=== PATIENT | female | born 1990 | race Caucasian/White ===

== ENCOUNTER → 2016-11-27 | Outpatient (CLI) | payer MEDICAID ==
[~2016-11-27] VITALS: Ht 162.6 cm; Wt 82.7 kg
[2016-11-27 15:17] VITALS: BP 110/64
== END | disposition home or self-care (01) ==
LOC: LDOP 13:29
PROVIDERS: ATTEND Obstetrics & Gynecology
DX: O42.913 Preterm premature rupture of membranes, unspecified as to length of time between rupture and onset of labor, third trimester (principal); Z3A.36 36 weeks gestation of pregnancy
CPT/HCPCS: 59025; 89060; 99211; G0463; Q0114

== ENCOUNTER 2016-12-11 03:19 | Outpatient (CLI) | payer MEDICAID ==
[~2016-12-11] VITALS: Ht 162.6 cm; Wt 82.7 kg
[2016-12-11 04:24] VITALS: BP 126/76
== END 2016-12-11 04:20 | disposition home or self-care (01) ==
LOC: LDOP 03:19
PROVIDERS: ATTEND Obstetrics & Gynecology
DX: O36.8130 Decreased fetal movements, third trimester, not applicable or unspecified (principal); Z3A.37 37 weeks gestation of pregnancy
CPT/HCPCS: 59025; 99211; G0463

== ENCOUNTER 2016-12-22 09:05 | Inpatient (IN) | payer MEDICAID ==
[~2016-12-22] VITALS: Ht 162.6 cm; Wt 82.7 kg
[2016-12-22] MEDS ORDERED: OXYTOCIN 30U/ 0.9% NaCL 500ML 500 ML ONE (09:46)
[2016-12-22] MEDS ORDERED: PREN1TAB60 PO (10:10)
[2016-12-22] MEDS ORDERED: OXYTOCIN 30U/ 0.9% NaCL 500ML 500 ML IV ONE (10:12)
[2016-12-22] MEDS ORDERED: D5%-LACTATED RINGERS 1,000 ML IV SCH (10:12)
[2016-12-22] MEDS ORDERED: OXYTOCIN 30U/ 0.9% NaCL 500ML 500 ML IV PRN (10:12)
[2016-12-22] MEDS: LACTATED RINGERS 1,000 ML IV SCH ×2 (10:18→15:19)
[2016-12-22 10:30] VITALS: BP 117/70
[2016-12-22] MEDS ORDERED: PLEASE ENTER HEIGHT AND WEIGHT MC SCH (10:30)
[2016-12-22] MEDS ORDERED: ONDANSETRON 2MG/ML, 2ML IVPush PRN (10:30)
[2016-12-22] MEDS ORDERED: FENTANYL PF 100 MCG/2ML IV PRN (10:30)
[2016-12-22] MEDS ORDERED: FENTANYL PF 100 MCG/2ML IVPush PRN (10:30)
[2016-12-22] MEDS ORDERED: LACTATED RINGERS 1,000 ML IV SCH (15:34)
[2016-12-22] MEDS ORDERED: FENTANYL/BUPIV./NS/PF 250 ML EPIDCONT SCH (15:34)
[2016-12-22] MEDS ORDERED: BUPIVACAINE/PF 0.25% ONE (15:42)
[2016-12-22] MEDS ORDERED: FENTANYL/BUPIV./NS/PF 250 ML EPIDCONT ONE ×2 (15:42→15:59)
[2016-12-22] MEDS ORDERED: BUPIVACAINE 0.25% ONE (15:59)
[2016-12-22] MEDS ORDERED: LACTATED RINGERS 1,000 ML IVBOLUS PRN (16:00)
[2016-12-22] MEDS ORDERED: NALOXONE 0.4 MG/ML, 1ML IVPush PRN (16:00)
[2016-12-22] MEDS ORDERED: EPHEDRINE 50 MG/ML, 1ML IVPush PRN (16:00)
[2016-12-22] MEDS ORDERED: NEWBORN KIT ONE (16:41)
[2016-12-22] MEDS ORDERED: MISOPROSTOL 200 MCG TABLET ONE (16:42)
[2016-12-22] MEDS ORDERED: LIDOCAINE 1%, 20ML ONE (16:42)
[2016-12-22] MEDS: OXYTOCIN 30U/ 0.9% NaCL 500ML 500 ML IV SCH ×6 (17:15→22:59)
[2016-12-22] MEDS ORDERED: METHYLERGONOVINE 0.2 MG/ML IM PRN (17:30)
[2016-12-22] MEDS ORDERED: MISOPROSTOL 200 MCG TABLET PR PRN (17:30)
[2016-12-22] MEDS: ACETAMINOPHEN 325 MG TABLET PO SCH ×2 (17:30→23:30)
[2016-12-22] MEDS ORDERED: ONDANSETRON 2MG/ML, 2ML IV PRN (17:30)
[2016-12-22] MEDS ORDERED: CALCIUM CARBONATE 500 MG TAB.CHEW PO PRN (17:30)
[2016-12-22] MEDS ORDERED: DOCUSATE 100 MG CAPSULE PO PRN (17:30)
[2016-12-22] MEDS ORDERED: BISACODYL 10 MG SUPP PR PRN (17:30)
[2016-12-22] MEDS ORDERED: IBUPROFEN 600 MG TABLET ONE (17:51)
[2016-12-22] MEDS: IBUPROFEN 600 MG TABLET PO SCH ×2 (17:53→23:40)
[2016-12-22 19:59] VITALS: BP 123/74
[2016-12-23 00:17] VITALS: BP 100/61
[2016-12-23] MEDS: OXYTOCIN 30U/ 0.9% NaCL 500ML 500 ML IV SCH ×3 (00:25→03:10)
[2016-12-23 04:22] VITALS: BP 129/76
[2016-12-23] MEDS: ACETAMINOPHEN 325 MG TABLET PO SCH ×2 (05:30→11:30)
[2016-12-23] MEDS: IBUPROFEN 600 MG TABLET PO SCH ×2 (05:40→12:22)
[2016-12-23 06:41] VITALS: BP 116/73
[2016-12-23] MEDS ORDERED: PRENATAL VIT/IRON/FA 1 EACH TABLET PO SCH (09:00)
[2016-12-23] MEDS ORDERED: IBUP-1222 PO (09:33)
[2016-12-23] MEDS ORDERED: RHOGAM FROM BLOOD BANK 1 NOTE EA IM/IV ONE (11:00)
[2016-12-23 12:10] VITALS: BP 121/61
[2016-12-23 16:02] VITALS: BP 121/75
== END 2016-12-23 16:43 | disposition home or self-care (01) | DRG 775 ==
LOC: LDIP 09:05 → 2NW 19:35
PROVIDERS: ADMIT Obstetrics & Gynecology; ATTEND Obstetrics & Gynecology
PROC: 10E0XZZ Delivery of Products of Conception, External Approach (ICD-10-PCS; principal; 2016-12-22)
PROC: 00HU33Z Insertion of Infusion Device into Spinal Canal, Percutaneous Approach (ICD-10-PCS; 2016-12-22)
PROC: 10907ZC Drainage of Amniotic Fluid, Therapeutic from Products of Conception, Via Natural or Artificial Opening (ICD-10-PCS; 2016-12-22)
PROC: 3E0R3CZ (ICD-10-PCS; 2016-12-22)
PROC: 3E033VJ Introduction of Other Hormone into Peripheral Vein, Percutaneous Approach (ICD-10-PCS; 2016-12-22)
PROC: 3E0334Z Introduction of Serum, Toxoid and Vaccine into Peripheral Vein, Percutaneous Approach (ICD-10-PCS; 2016-12-23)
DX: O99.344 Other mental disorders complicating childbirth (principal); F41.9 Anxiety disorder, unspecified; O26.893 Other specified pregnancy related conditions, third trimester; O71.82 Other specified trauma to perineum and vulva; O69.89X0 Labor and delivery complicated by other cord complications, not applicable or unspecified; Z90.89 Acquired absence of other organs; Z80.3 Family history of malignant neoplasm of breast; Z82.3 Family history of stroke; Z67.11 Type A blood, Rh negative; Z3A.39 39 weeks gestation of pregnancy; Z37.0 Single live birth
CPT/HCPCS: 36415; 85025; 85461; 86850; 86900; J2790; J3490; J2590; J3010; J7120